=== PATIENT | female | born 1985 | race Hispanic/Latino ===

== ENCOUNTER 2018-02-03 12:49 | Emergency (ER) | payer OTHER ==
[~2018-02-03] VITALS: Ht 175.3 cm; Wt 108.9 kg
--- OUTSIDE RECORDS SUMMARY | 2018-02-03 12:51 | XMS REPORT | Summary of Care ---
Author Author [facility] Organization [facility] Address Unknown Phone Unavailable Encounter HQ Marti_maritza(FIN) [id number] Date(s): 06/28/17 - 06/28/17 [facility] [address], [address] [place] [address]- [phone] Discharge Disposition: Home or Self Care Attending Physician: Brianne Aviles MD Vital Signs Most recent to 1 oldest [Reference Range]: Height 175.26 cm (06/28/17 11:34 AM) Temperature Oral 97.7 DegF [96.4-99.1 DegF] (06/28/17 11:34 AM) Blood Pressure 118/82 mmHg [90-140/60-90 mmHg] (06/28/17 11:34 AM) Respiratory Rate 14 BRMIN [14-20 BRMIN] (06/28/17 11:34 AM) Peripheral Pulse 70 bpm Rate [60-100 bpm] (06/28/17 11:34 AM) Weight 111.136 kg (06/28/17 11:34 AM) Body Mass Index 36.18 m2 (06/28/17 11:34 AM) Problem List Condition Effective Dates Status Health Status Informant Anemia(Confirmed) Active Diarrhea(Confirmed) Active Fatigue(Confirmed) Active History of Active pancreatitis(Confirm ed) Hypertrophy Active tonsils(Confirmed) Dyspepsia(Confirmed) Active Menorrhagia(Confirme Active d) Obesity(Confirmed)1 06/05/14 Active Snoring(Confirmed) Active 1Data migrated from [facility] on 10/16/14. Allergies, Adverse Reactions, Alerts Substance Reaction Severity Status NKDA Active Medications No Known Medications Results No data available for this section Immunizations Given and Recorded Vaccine Date Status Refusal Reason diphtheria/pertussis, acel/tetanus adult 06/25/13 Given Procedures Procedure Date Related Diagnosis Body Site Status Colonoscopy 10/07/16 Completed Appendectomy 05/21/14 Completed section 06/22/13 Completed TL - Tubal ligation 06/22/13 Completed section 06/02/09 Completed section 03/09/07 Completed Cholecystectomy Completed Repair of tendon1 Completed 1right ankle Social History Social History Type Response Substance Abuse Use: None. Exercise Exercise duration: 0. Employment/School Status: Employed. 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 Alcohol Current, Type Beer, Wine, Liquor.1 Smoking Status Never smoker; Exposure to Tobacco Smoke None; Cigarette Smoking Last 365 Days No; Reg Smoking Cessation Counseling No entered on: 06/28/17 1socially Assessment and Plan No data available for this section
--- OUTSIDE RECORDS SUMMARY | 2018-02-03 12:51 | XMS REPORT | Continuity of Care Document ---
Author Author [facility] Interface Address Unknown Phone Unavailable Problems Problem Status Onset Date Classification Date Reported Comments Source BODY MASS INDEX 32.0-32.9, ADULT Active 06/05/2014 Condition 06/05/2014 [facility] Group OBESITY Active 06/05/2014 Condition 06/05/2014 [facility] Group PREVENTIVE HEALTH CARE Active 06/05/2014 Condition 06/05/2014 Medical Group Obesity<sup>1</sup> Active 06/05/2014 Problem 10/04/2017 Data migrated from [employer] on 10/16/14. Medical Group Active 10/04/2012 [facility] Anemia Active Problem 10/04/2017 [facility] Diarrhea Active Problem 10/04/2017 [facility] Fatigue Active Problem 10/04/2017 [facility] History of pancreatitis Active Problem 10/04/2017 [facility] Hypertrophy tonsils Active Problem 10/04/2017 [facility] Dyspepsia Active Problem 10/04/2017 [facility] Menorrhagia Active Problem 10/04/2017 [facility] Snoring Active Problem 10/04/2017 [facility] DELIV NOS-UNSP Active [facility] Medications Medication Details Route Status Patient Instructions Ordering Provider Order Date Source Multivitamins oral tablet 1 tab, Route: PO, Drug Form: TAB, Dosing Weight 109.091, kg, Daily, Start date: 06/23/13 9:00:00, Duration: 30 day, Stop date: 07/22/13 9:00:00 No Longer Active 06/23/2013 [facility] Hydrocortisone 25 MG/ML Rectal Cream [Anusol HC] 1 appl, Route: MD, BID, Drug form: CRM/A, Start date: 06/23/13 9:00:00, Duration: 30 day, Stop date: 07/22/13 17:00:00(Same as: Anusol-HC, Proctosol-HC) No Longer Active 06/23/2013 [facility] Tucks 1 appl, Route: TOP, TID, Drug form: PAD, PRN Hemorrhoids, Start date: 06/23/13 8:52:00, Duration: 30 day, Stop date: 07/23/13 8:51:00(Same as: Mina Allen PADS) No Longer Active 06/23/2013 [facility] ferrous sulfate 325 mg oral enteric coated tablet 325 mg=1 tab, PO, Daily, # 90 tab, 0 Refill(s) Active 06/23/2013 [facility] Cephalexin 500 MG Oral Capsule [Keflex] 500 mg=1 cap, PO, TID, # 21 cap, 0 Refill(s) Active 06/23/2013 [facility] Docusate Sodium 100 MG Oral Capsule [Colace] 100 mg=1 cap, PO, BID, Constipation, # 20 cap, 0 Refill(s) Active 06/23/2013 [facility] ibuprofen 600 mg oral tablet 600 mg=1 tab, PO, Q6H, Pain, take with food, # 30 tab, 0 Refill(s)take with food Active 06/23/2013 [facility] Acetaminophen 325 MG / Hydrocodone Bitartrate 5 MG Oral Tablet [Parshall 5/325] 1-2 tab, PO, Q4-6H, Pain, # 30 tab, 0 Refill(s) Active 06/23/2013 [facility] Benadryl 25 mg, 1 cap, Route: PO, Drug form: CAP, PRN, Dosing Weight 109.091, kg, PRN Other -See Comment, Start date: 06/22/13 21:35:00, Duration: 30 day, Stop date: 07/22/13 21:34:00, for itching(Same as: Benadryl) No Longer Active 06/23/2013 [facility] Saline Flush 0.9% 5 ml, Route: IVP, Drug Form: INJ, Dosing Weight 109.091, kg, Q12H, Start date: 06/22/13 21:00:00, Duration: 30 day, Stop date: 07/22/13 9:00:00Same as: BD Posiflush Sterile No Longer Active 06/23/2013 [facility] 10 ML Cefazolin 100 MG/ML Prefilled Syringe 2 gm, 50 mL, Route: IVPB, Drug form: INJ, ABXQ8H, Dosing Weight 109.091, kg, Start date: 06/22/13 17:00:00, Stop date: 06/23/13 9:19:00 No Longer Active 06/22/2013 [facility] Motrin 600 mg, 1 tab, Route: PO, Drug form: TAB, Q6H-02, Start date: 06/22/13 14:00:00, Duration: 24 hr, Stop date: 06/23/13 8:00:00(Same as: Motrin) "Do Not Crush" Take with food. Active 06/22/2013 [facility] ketorolac 30 mg/mL injectable solution 30 mg, 1 mL, Route: IVP, Drug form: INJ, Q6H-02, Start date: 06/22/13 14:00:00, Duration: 2 doses or times, Stop date: 06/22/13 20:00:00(Same as:Toradol) IV bolus must be given > 15 seconds. Give IM administration slowly and deeply into the muscle. Not for use > 4 days Inactive 06/22/2013 [facility] M-M-R II 0.5 mL, Route: SUB-Q, Drug Form: PDR/INJ, Dosing Weight 109.091, kg, ONCALL, Start date: 06/22/13 11:00:00, Duration: 1 doses or times(Same as: M-M-R II) (hjuwoyq-uguwd-ncqbkxi virus vaccine 0.5 ml INJ VL) GIVE PRIOR TO DISCHARGE No Longer Active 06/22/2013 [facility] zolpidem 5 mg, 1 tab, Route: PO, Drug form: TAB, Bedtime, Dosing Weight 109.091, kg, PRN Insomnia, Start date: 06/22/13 10:09:00, Duration: 30 day, Stop date: 07/22/13 10:08:00(Same As: Ambien) No Longer Active 06/22/2013 [facility] Acetaminophen 650 mg, 20.3 mL, Route: PO, Drug form: LIQ, Q4H, Dosing Weight 109.091, kg, PRN Other -See Comment, Start date: 06/22/13 10:09:00, Duration: 30 day, Stop date: 07/22/13 10:08:00Max fsuzxznnhzmem=8063 mg/day (4 gm/day). (Same as: Tylenol) No Longer Active 06/22/2013 [facility] Simethicone 160 mg, 2 tab, Route: PO, Drug form: CHEWTAB, Q8H, Dosing Weight 109.091, kg, PRN Gas, Start date: 06/22/13 10:09:00, Duration: 30 day, Stop date: 07/22/13 10:08:00(Same as: Mylicon) No Longer Active 06/22/2013 [facility] Saline Flush 0.9% 5 ml, Route: IVP, Drug Form: INJ, Dosing Weight 109.091, kg, PRN, PRN Line Flush, Start date: 06/22/13 10:09:00, Duration: 30 day, Stop date: 07/22/13 10:08:00Same as: BD Posiflush Sterile No Longer Active 06/22/2013 [facility] lanolin topical cream 1 appl, Route: TOP, PRN, Drug form: OINT, PRN Other -See Comment, Start date: 06/22/13 10:09:00, Duration: 30 day, Stop date: 07/22/13 10:08:00(Same as:Lanolin) No Longer Active 06/22/2013 [facility] Bisacodyl 15 mg, 3 tab, Route: PO, Drug form: ECTAB, Daily, Dosing Weight 109.091, kg, PRN Other -See Comment, Start date: 06/22/13 10:09:00, Duration: 30 day, Stop date: 07/22/13 10:08:00(Same As: Dulcolax, Julia ectol) (Do Not Crush) "Do Not Crush" No Longer Active 06/22/2013 [facility] Ibuprofen 800 mg, 1 tab, Route: PO, Drug form: TAB, Q8H, Dosing Weight 109.091, kg, PRN Pain Score 6-10, Start date: 06/22/13 10:09:00, Duration: 30 day, Stop date: 07/22/13 10:08:00(Same as: Motrin) "Do Not Crush" Take with food. No Longer Active 06/22/2013 [facility] Acetaminophen 325 MG / Hydrocodone Bitartrate 5 MG Oral Tablet 2 tab, Route: PO, Drug Form: TAB, Dosing Weight 109.091, kg, Q4H, PRN Pain Score 4-6, Start date: 06/22/13 10:09:00, Duration: 30 day, Stop date: 07/22/13 10:08:00(Same as: Parshall 325/5) Do not exceed 4gm/day of acetaminophen. No Longer Active 06/22/2013 [facility] Lactated Ringers IV 1,000 mL 1,000 mL, Rate: 100 ml/hr, Infuse over: 10 hr, Route: IV, Dosing Weight 109.091 kg, Total Volume: 1,000, Start date: 06/22/13 10:09:00, Duration: 30 day, Stop date: 07/22/13 10:08:00 No Longer Active 06/22/2013 [facility] Oxytocin 0.03 UNT/ML Injectable Solution 30 unit, 500 mL, Rate: 42 ml/hr, Infuse over: 11.9 hr, Dosing Weight 109.091, kg, Route: IV, Total Volume: 500 mL, Start date: 06/22/13 10:09:00, Duration: 1 doses or times, Stop date: 06/22/13 22:02:00, Replace Every: 11.9 hr Inactive 06/22/2013 [facility] Zofran 4 mg, 2 mL, Route: IVP, Drug form: INJ, PRN, PRN Nausea, Start date: 06/22/13 9:48:00, Duration: 24 hr, Stop date: 06/23/13 9:47:00(Same as: Zofran) No Longer Active 06/22/2013 [facility] naloxone 0.4 mg, 1 mL, Route: IVP, Drug form: INJ, PRN, PRN Narcotic Reversal, Start date: 06/22/13 9:48:00, Duration: 24 hr, Stop date: 06/23/13 9:47:00(Same as: Narcan) No Longer Active 06/22/2013 [facility] Azithromycin 500 mg, Route: IVPB, Drug form: PDR/INJ, ONCALL, Dosing Weight 109.091, kg, Start date: 06/22/13 6:00:00, Duration: 1 doses or times(Same As: Zithromax IV) Inactive 06/22/2013 [facility] Cefazolin 3 gm, 150 mL, Route: IVPB, Drug form: INJ, ONCALL, Dosing Weight 109.091, kg, Start date: 06/22/13 6:00:00, Duration: 1 doses or times Inactive 06/22/2013 [facility] Carboprost 250 microgram, 1 mL, Route: IM, Drug form: INJ, ONCALL, Dosing Weight 109.091, kg, Start date: 06/22/13 6:00:00, Duration: 30 day, Stop date: 07/22/13 5:59:00(Same As: Hemabate) No Longer Active 06/22/2013 [facility] Misoprostol 1,000 microgram, 5 tab, Route: MD, Drug form: TAB, ONCALL, Dosing Weight 109.091, kg, Start date: 06/22/13 6:00:00, Duration: 30 day, Stop date: 07/22/13 5:59:00(Same as:Cytotec) Take with food No Longer Active 06/22/2013 [facility] Methylergonovine 0.2 mg, 1 mL, Route: IM, Drug form: INJ, ONCALL, Dosing Weight 109.091, kg, Start date: 06/22/13 6:00:00, Duration: 30 day, Stop date: 07/22/13 5:59:00(Same as:Methergine) No Longer Active 06/22/2013 [facility] Morphine 2 mg, 1 mL, Route: IVP, Drug form: INJ, Q2H, Dosing Weight 109.091, kg, PRN Pain Score 7-10, Start date: 06/22/13 5:58:00, Duration: 30 day, Stop date: 07/22/13 5:57:00(Same as:MORPhine Sulfate) No Longer Active 06/22/2013 [facility] Ondansetron 4 mg, 2 mL, Route: IVP, Drug form: INJ, Q8H, Dosing Weight 109.091, kg, PRN Nausea & Vomiting, Start date: 06/22/13 5:58:00, Duration: 30 day, Stop date: 07/22/13 5:57:00(Same as: Zofran) No Longer Active 06/22/2013 [facility] Citric Acid / sodium citrate 30 mL, Route: PO, Drug Form: SOLN, Dosing Weight 109.091, kg, ONCE, Start date: 06/22/13 5:58:00, Duration: 1 doses or times, Stop date: 06/22/13 5:58:00(Same As: Bicitra, Cytra-2) Sodium citrate-citric acid (500-334 mg/5 mL): 1 mL contains sodium 1 mEq/mL and bicarbonate 1 mEq/mL No Longer Active 06/22/2013 [facility] Terbutaline 0.25 mg, 0.25 mL, Route: SUB-Q, Drug form: INJ, ONCALL, Dosing Weight 109.091, kg, PRN Other -See Comment, Start date: 06/22/13 5:58:00, Duration: 1 doses or times, Stop date: Limited # of timesDO NOT USE IN FUNERAL ASSISTANT AREA (Same As: Brethine) No Longer Active 06/22/2013 [facility] Oxytocin 0.03 UNT/ML Injectable Solution 30 unit, 500 mL, Rate: 42 ml/hr, Infuse over: 11.9 hr, Dosing Weight 109.091, kg, Route: IV, Total Volume: 500 mL, Start date: 06/22/13 5:58:00, Duration: 1 doses or times, Stop date: 06/22/13 17:51:00, Replace Every: 11.9 hr Inactive 06/22/2013 [facility] Calcium Chloride 0.0014 MEQ/ML / Potassium Chloride 0.004 MEQ/ML / Sodium Chloride 0.103 MEQ/ML / Sodium Lactate 0.028 MEQ/ML Injectable Solution 1,000 mL, Rate: 125 ml/hr, Infuse over: 8 hr, Route: IV, Dosing Weight 109.091 kg, Total Volume: 1,000, Start date: 06/22/13 5:58:00, Duration: 30 day, Stop date: 07/22/13 5:57:00 No Longer Active 06/22/2013 [facility] 1 Plus 1 oral tablet 1 tab, PO, Daily, # 30 tab, 0 Refill(s) Active 06/22/2013 [facility] Allergies, Adverse Reactions, Alerts Substance Category Reaction Severity Reaction type Status Date Reported Comments Source DOG Drug allergy DOG 06/05/2014 [facility] CATS Environmental allergy CATS 06/05/2014 [facility] ROCHES Environmental allergy ROCHES 06/05/2014 [facility] DUST MITES Environmental allergy DUST MITES 06/05/2014 [facility] Immunizations Immunization Date Given Site Status Last Updated Comments Source influenza immunization (Flu Vax) has been administered 01/09/2014 completed [facility] diphtheria/pertussis, acel/tetanus adult 06/25/2013 Right deltoid completed Hector [facility] Results Order Name Results Value Reference Range Date Interpretation Comments Source Welder/Fabricator PAP SMEAR done per patient normal 07/10/2013 [facility] HEMATOLOGY MPV 9.6 fL 7.4 - 10.4 06/24/2013 [facility] HEMATOLOGY Platelet 196 K/CMM 133 - 450 06/24/2013 [facility] HEMATOLOGY MCHC 33.0 g/dL 32.0 - 36.0 06/24/2013 [facility] HEMATOLOGY RDW 15.0 % 11.5 - 14.5 06/24/2013 [facility] HEMATOLOGY MCH 25.3 pg 27.0 - 31.0 06/24/2013 [facility] HEMATOLOGY Hgb 8.5 g/dL 12.0 - 16.0 06/24/2013 [facility] HEMATOLOGY Hct 25.9 % 36.0 - 48.0 06/24/2013 [facility] HEMATOLOGY MCV 76.6 fL 81.0 - 99.0 06/24/2013 [facility] HEMATOLOGY WBC X 10x3 9.1 K/CMM 3.7 - 10.4 06/24/2013 [facility] HEMATOLOGY RBC X 10x6 3.38 M/CMM 4.20 - 5.40 06/24/2013 [facility] HEMATOLOGY Microcyte 1+ *ABN* (06/24/2013 04:07:11 [facility]/[place]) None Seen 06/24/2013 [facility] HEMATOLOGY Lymphocytes # 1.7 K/CMM 1.0 - 5.5 06/24/2013 [facility] HEMATOLOGY Segs-Bands # 6.6 K/CMM 1.5 - 8.1 06/24/2013 [facility] HEMATOLOGY Basophils 0.2 % 0.0 - 1.0 06/24/2013 [facility] HEMATOLOGY Monocytes # 0.5 K/CMM 0.0 - 0.8 06/24/2013 [facility] HEMATOLOGY Eosinophils # 0.2 K/CMM 0.0 - 0.5 06/24/2013 [facility] HEMATOLOGY Segs 72.9 % 45.0 - 75.0 06/24/2013 [facility] HEMATOLOGY Lymphocytes 19.0 % 20.0 - 40.0 06/24/2013 [facility] HEMATOLOGY Eosinophils 2.4 % 0.0 - 4.0 06/24/2013 [facility] HEMATOLOGY Monocytes 5.5 % 2.0 - 12.0 06/24/2013 [facility] HEMATOLOGY Segs 79.5 % 45.0 - 75.0 06/23/2013 [facility] HEMATOLOGY Monocytes # 0.5 K/CMM 0.0 - 0.8 06/23/2013 [facility] HEMATOLOGY Lymphocytes # 1.3 K/CMM 1.0 - 5.5 06/23/2013 [facility] HEMATOLOGY Segs-Bands # 7.3 K/CMM 1.5 - 8.1 06/23/2013 [facility] HEMATOLOGY Microcyte 1+ *ABN* (06/23/2013 01:52:19 [facility]/[place]) None Seen 06/23/2013 [facility] HEMATOLOGY Eosinophils # 0.1 K/CMM 0.0 - 0.5 06/23/2013 [facility] HEMATOLOGY Monocytes 5.7 % 2.0 - 12.0 06/23/2013 [facility] HEMATOLOGY Lymphocytes 13.7 % 20.0 - 40.0 06/23/2013 [facility] HEMATOLOGY Basophils 0.1 % 0.0 - 1.0 06/23/2013 [facility] HEMATOLOGY Eosinophils 1.0 % 0.0 - 4.0 06/23/2013 [facility] HEMATOLOGY Platelet 165 K/CMM 133 - 450 06/23/2013 [facility] HEMATOLOGY MPV 10.2 fL 7.4 - 10.4 06/23/2013 [facility] HEMATOLOGY MCV 75.3 fL 81.0 - 99.0 06/23/2013 [facility] HEMATOLOGY MCH 24.7 pg 27.0 - 31.0 06/23/2013 [facility] HEMATOLOGY MCHC 32.8 g/dL 32.0 - 36.0 06/23/2013 [facility] HEMATOLOGY RDW 14.7 % 11.5 - 14.5 06/23/2013 [facility] HEMATOLOGY Hct 25.8 % 36.0 - 48.0 06/23/2013 [facility] HEMATOLOGY Hgb 8.5 g/dL 12.0 - 16.0 06/23/2013 [facility] HEMATOLOGY RBC X 10x6 3.42 M/CMM 4.20 - 5.40 06/23/2013 [facility] HEMATOLOGY WBC X 10x3 9.2 K/CMM 3.7 - 10.4 06/23/2013 [facility] BLOOD BANK RESULTS Antibody Scrn Negative (06/22/2013 06:15:00 [facility]) 06/22/2013 [facility] BLOOD BANK RESULTS ABO/Rh O POS 06/22/2013 [facility] HEMATOLOGY Platelet 217 K/CMM 133 - 450 06/22/2013 [facility] HEMATOLOGY MPV 10.6 fL 7.4 - 10.4 06/22/2013 [facility] HEMATOLOGY Hct 30.9 % 36.0 - 48.0 06/22/2013 [facility] HEMATOLOGY MCH 24.4 pg 27.0 - 31.0 06/22/2013 [facility] HEMATOLOGY MCV 75.5 fL 81.0 - 99.0 06/22/2013 [facility] HEMATOLOGY RDW 14.4 % 11.5 - 14.5 06/22/2013 [facility] HEMATOLOGY MCHC 32.3 g/dL 32.0 - 36.0 06/22/2013 [facility] HEMATOLOGY RBC X 10x6 4.09 M/CMM 4.20 - 5.40 06/22/2013 [facility] HEMATOLOGY WBC X 10x3 11.2 K/CMM 3.7 - 10.4 06/22/2013 [facility] HEMATOLOGY Hgb 10.0 g/dL 12.0 - 16.0 06/22/2013 [facility] HEMATOLOGY Microcyte 1+ *ABN* (06/22/2013 05:59:00 [facility]) None Seen 06/22/2013 [facility] HEMATOLOGY Lymphocytes # 1.4 K/CMM 1.0 - 5.5 06/22/2013 [facility] HEMATOLOGY Segs-Bands # 9.3 K/CMM 1.5 - 8.1 06/22/2013 [facility] HEMATOLOGY Eosinophils # 0.1 K/CMM 0.0 - 0.5 06/22/2013 [facility] HEMATOLOGY Monocytes # 0.4 K/CMM 0.0 - 0.8 06/22/2013 [facility] HEMATOLOGY Lymphocytes 12.8 % 20.0 - 40.0 06/22/2013 [facility] HEMATOLOGY Segs 82.4 % 45.0 - 75.0 06/22/2013 [facility] HEMATOLOGY Basophils 0.4 % 0.0 - 1.0 06/22/2013 [facility] HEMATOLOGY Eosinophils 0.6 % 0.0 - 4.0 06/22/2013 [facility] HEMATOLOGY Monocytes 3.8 % 2.0 - 12.0 06/22/2013 [facility] IMMUNOLOGY Treponemal Scr Non Reactive *NA* (06/22/2013 05:59:00 [facility]) Non Reactive 06/22/2013 [facility] IMMUNOLOGY HIV. Negative *NA* (06/22/2013 05:59:00 [facility]) Negative 06/22/2013 [facility] IMMUNOLOGY Hep Bs Ag Negative *NA* (06/22/2013 05:59:00 [facility]) Negative 06/22/2013 [facility] Vital Signs Vital Sign Value Date Comments Source Height 175.26 cm 06/28/2017 [facility] Weight 111.136 06/28/2017 [facility] BMI Calculated 36.18 06/28/2017 [facility] Respitory Rate 14 06/28/2017 [facility] Heart Rate 70 06/28/2017 [facility] Temperature Oral (F) 97.7 F 06/28/2017 [facility] Systolic (mm Hg) 118 06/28/2017 [facility] Diastolic (mm Hg) 82 06/28/2017 [facility] Height 68 06/05/2014 [facility] Respitory Rate 12 06/05/2014 [facility] Weight 210.25 06/05/2014 [facility] Temperature Oral (F) 97.7 F 06/05/2014 Medical [facility] Heart Rate 76 06/05/2014 [facility] Systolic (mm Hg) 101 06/05/2014 [facility] Diastolic (mm Hg) 65 06/05/2014 Medical [facility] Height 175.26 cm 06/22/2013 [facility] BMI Calculated 35.52 06/22/2013 [facility] Weight 109.091 06/22/2013 [facility] Height 175.26 cm 06/22/2013 [facility] Weight 109.091 06/22/2013 [facility] BMI Calculated 35.52 06/22/2013 [facility] Encounters Location Location Details Encounter Type Encounter Number Reason For Visit Attending Provider ADM Date DC Date Status Source [facility] Inpatient [id number] _[id number] Liya Lopez 06/22/2013 06/25/2013 [facility] Office Visit [id number] Brianne Martinez MD 06/05/2014 06/05/2014 [facility] Outpatient [id number] BRIANNE MARTINEZ 06/17/2016 Active [facility] Outpatient [id number] BRIANNE MARTINEZ 09/23/2016 [facility] Outpatient [id number] BRIANNE MARTINEZ 06/28/2017 Active [facility] Outpatient [id number] Brianne Martinez 06/28/2017 06/29/2017 [facility] Procedures Procedure Code Date Perfomer Comments Source Colonoscopy [id number] 10/07/2016 [facility] Appendectomy [id number] 05/21/2014 [facility] vaginal Pap smear results [id number] 07/10/2013 done per patient normal Medical [facility] section [id number] 06/22/2013 Medical [facility] TL - Tubal ligation [id number] 06/22/2013 [facility] section [id number] 06/02/2009 Medical [facility] section [id number] 03/09/2007 [facility] Cholecystectomy [id number] [facility] Repair of tendon<sup>1</sup> [id number] right ankle [facility]
--- OUTSIDE RECORDS SUMMARY | 2018-02-03 12:51 | XMS REPORT | Summary of Care ---
Author Organization Unknown Address Unknown Phone Unavailable Encounter Dates Location Diagnoses Discharge Providers Disposition 06/22/2013 [facility] Liya Lopez - [address] [facility] Liya Lopez 06/25/[address] Reason for Visit Vital Signs Most recent to 1 2 oldest [Reference Range]: Height 175.26 cm 175.26 cm (06/22/2013 06:20:00 Marie/Revelo) (06/22/2013 05:55:00 Marie/Revelo) Weight 109.091 kg 109.091 kg (06/22/2013 06:20:00 Marie/Revelo) (06/22/2013 05:55:00 Marie/Revelo) Body Mass Index 35.52 m2 35.52 m2 (06/22/2013 06:20:00 Marie/Revelo) (06/22/2013 05:55:00 Marie/Revelo) Problem List No data available for this section Allergies, Adverse Reactions, Alerts Status Substance Reaction Severity Active NKDA Medications Medication Instructions Start Date Stop Date Status acetaminophen 650 mg, 20.3 mL, Route: PO, Drug 06/22/2013 06/25/2013 Discontinued form: LIQ, Q4H, Dosing Weight 109.091, kg, PRN Other -See Comment, Start date: 06/22/13 10:09:00, Duration: 30 day, Stop date: 07/22/13 10:08:00 Max qfrdtxoqfjwwj=1084bt/day (4 gm/day). (Same as: Tylenol) acetaminophen-hydroc 2 tab, Route: PO, Drug Form: TAB, 06/22/2013 06/25/2013 Discontinued odone 325 mg-5 mg Dosing Weight 109.091, kg, Q4H, PRN oral tablet Pain Score 4-6, Start date: 06/22/13 10:09:00, Duration: 30 day, Stop date: 07/22/13 10:08:00 (Same as: Lando 325/5) Do not exceed 4gm/day of acetaminophen. acetaminophen-hydroc 1 tab, Route: PO, Drug Form: TAB, 06/22/2013 06/25/2013 Discontinued odone 325 mg-5 mg Dosing Weight 109.091, kg, Q4H, PRN oral tablet Pain Score 1-3, Start date: 06/22/13 10:09:00, Duration: 30 day, Stop date: 07/22/13 10:08:00 (Same as: Lando 325/5) Do not exceed 4gm/day of acetaminophen. Anusol-HC 2.5% 1 appl, Route: VT, BID, Drug form: 06/23/2013 06/25/2013 Discontinued rectal cream with CRM/A, Start date: 06/23/13 applicator 9:00:00, Duration: 30 day, Stop date: 07/22/13 17:00:00 (Same as: Anusol-HC, Proctosol-HC) azithromycin 500 mg, Route: IVPB, Drug form: 06/22/2013 06/22/2013 Completed PDR/INJ, ONCALL, Dosing Weight 109.091, kg, Start date: 06/22/13 6:00:00, Duration: 1 doses or times (Same As: Zithromax IV) Benadryl 25 mg, 1 cap, Route: PO, Drug form: 06/22/2013 06/25/2013 Discontinued CAP, PRN, Dosing Weight 109.091, kg, PRN Other -See Comment, Start date: 06/22/13 21:35:00, Duration: 30 day, Stop date: 07/22/13 21:34:00, for itching (Same as: Benadryl) bisacodyl 15 mg, 3 tab, Route: PO, Drug form: 06/22/2013 06/25/2013 Discontinued ECTAB, Daily, Dosing Weight 109.091, kg, PRN Other -See Comment, Start date: 06/22/13 10:09:00, Duration: 30 day, Stop date: 07/22/13 10:08:00 (Same As: Dulcolax, Correctol) (Do Not Crush) "Do Not Crush" bisacodyl 10 mg, 1 supp, Route: VT, Drug 06/22/2013 06/25/2013 Discontinued form: SUPP, PRN, Dosing Weight 109.091, kg, PRN Other -See Comment, Start date: 06/22/13 10:09:00, Duration: 30 day, Stop date: 07/22/13 10:08:00 (Same As: Dulcolax, Bisco-Lax) carboprost 250 microgram, 1 mL, Route: IM, 06/22/2013 06/23/2013 Discontinued Drug form: INJ, ONCALL, Dosing Weight 109.091, kg, Start date: 06/22/13 6:00:00, Duration: 30 day, Stop date: 07/22/13 5:59:00 (Same As: Hemabate) ceFAZolin 3 gm, 150 mL, Route: IVPB, Drug 06/22/2013 06/22/2013 Completed form: INJ, ONCALL, Dosing Weight 109.091, kg, Start date: 06/22/13 6:00:00, Duration: 1 doses or times ceFAZolin (SCIP) 2 gm, 50 mL, Route: IVPB, Drug 06/22/2013 06/23/2013 Completed form: INJ, ABXQ8H, Dosing Weight 109.091, kg, Start date: 06/22/13 17:00:00, Stop date: 06/23/13 9:19:00 citric acid-sodium 30 mL, Route: PO, Drug Form: SOLN, 06/22/2013 06/23/2013 Discontinued citrate Dosing Weight 109.091, kg, ONCE, Start date: 06/22/13 5:58:00, Duration: 1 doses or times, Stop date: 06/22/13 5:58:00 (Same As: Bicitra, Cytra-2) Sodium citrate-citric acid (500-334 mg/5 mL): 1 mL contains sodium 1 mEq/mL and bicarbonate 1 mEq/mL Colace 100 mg oral 100 mg=1 cap, PO, BID, 06/23/2013 Ordered capsule Constipation, # 20 cap, 0 Refill(s) ferrous sulfate 325 325 mg=1 tab, PO, Daily, # 90 tab, 06/23/2013 Ordered mg oral enteric 0 Refill(s) coated tablet ibuprofen 800 mg, 1 tab, Route: PO, Drug 06/22/2013 06/25/2013 Discontinued form: TAB, Q8H, Dosing Weight 109.091, kg, PRN Pain Score 6-10, Start date: 06/22/13 10:09:00, Duration: 30 day, Stop date: 07/22/13 10:08:00 (Same as: Motrin)"Do Not Crush" Take with food. ibuprofen 600 mg, 1 tab, Route: PO, Drug 06/22/2013 06/25/2013 Discontinued form: TAB, Q6H, Dosing Weight 109.091, kg, PRN Pain Score 1-5, Start date: 06/22/13 10:09:00, Duration: 30 day, Stop date: 07/22/13 10:08:00 (Same as: Motrin)"Do Not Crush" Take with food. ibuprofen 600 mg 600 mg=1 tab, PO, Q6H, Pain, take 06/23/2013 Ordered oral tablet with food, # 30 tab, 0 Refill(s) take with food Keflex 500 mg oral 500 mg=1 cap, PO, TID, # 21 cap, 0 06/23/2013 06/30/2013 Ordered capsule Refill(s) ketorolac 30 mg/mL 30 mg, 1 mL, Route: IVP, Drug form: 06/22/2013 06/22/2013 Completed injectable solution INJ, Q6H-02, Start date: 06/22/13 14:00:00, Duration: 2 doses or times, Stop date: 06/22/13 20:00:00 (Same as:Toradol) IV bolus must be given >15 seconds. Give IM administration slowly and deeply into the muscle. Not for use > 4 days Lactated Ringers 1,000 mL, Rate: 125 ml/hr, Infuse 06/22/2013 06/23/2013 Discontinued Injection IV 1,000 over: 8 hr, Route: IV, Dosing mL Weight 109.091 kg, Total Volume: 1,000, Start date: 06/22/13 5:58:00, Duration: 30 day, Stop date: 07/22/13 5:57:00 Lactated Ringers IV 1,000 mL, Rate: 100 ml/hr, Infuse 06/22/2013 06/25/2013 Discontinued 1,000 mL over: 10 hr, Route: IV, Dosing Weight 109.091 kg, Total Volume: 1,000, Start date: 06/22/13 10:09:00, Duration: 30 day, Stop date: 07/22/13 10:08:00 lanolin topical 1 appl, Route: TOP, PRN, Drug form: 06/22/2013 06/25/2013 Discontinued cream OINT, PRN Other -See Comment, Start date: 06/22/13 10:09:00, Duration: 30 day, Stop date: 07/22/13 10:08:00 (Same as:Lanolin) M-M-R II 0.5 mL, Route: SUB-Q, Drug Form: 06/22/2013 06/25/2013 Discontinued PDR/INJ, Dosing Weight 109.091, kg, ONCALL, Start date: 06/22/13 11:00:00, Duration: 1 doses or times (Same as: M-M-R II) (vdvyjhz-cntln-ndegihe virus vaccine 0.5 ml INJ VL) GIVE PRIOR TO DISCHARGE methylergonovine 0.2 mg, 1 mL, Route: IM, Drug form: 06/22/2013 06/23/2013 Discontinued INJ, ONCALL, Dosing Weight 109.091, kg, Start date: 06/22/13 6:00:00, Duration: 30 day, Stop date: 07/22/13 5:59:00 (Same as:Methergine) misoprostol 1,000 microgram, 5 tab, Route: VT, 06/22/2013 06/23/2013 Discontinued Drug form: TAB, ONCALL, Dosing Weight 109.091, kg, Start date: 06/22/13 6:00:00, Duration: 30 day, Stop date: 07/22/13 5:59:00 (Same as:Cytotec) Take with food morphine Sulfate 2 mg, 1 mL, Route: IVP, Drug form: 06/22/2013 06/23/2013 Discontinued INJ, Q2H, Dosing Weight 109.091, kg, PRN Pain Score 7-10, Start date: 06/22/13 5:58:00, Duration: 30 day, Stop date: 07/22/13 5:57:00 (Same as:MORPhine Sulfate) Motrin 600 mg, 1 tab, Route: PO, Drug 06/22/2013 06/23/2013 Pending form: TAB, Q6H-02, Start date: Complete 06/22/13 14:00:00, Duration: 24 hr, Stop date: 06/23/13 8:00:00 (Same as: Motrin)"Do Not Crush" Take with food. naloxone 0.4 mg, 1 mL, Route: IVP, Drug 06/22/2013 06/23/2013 Completed form: INJ, PRN, PRN Narcotic Reversal, Start date: 06/22/13 9:48:00, Duration: 24 hr, Stop date: 06/23/13 9:47:00 (Same as: Narcan) Lando 5/325 oral 1-2 tab, PO, Q4-6H, Pain, # 30 tab, 06/23/2013 06/28/2013 Ordered tablet 0 Refill(s) NS 500ml + Pitocin 30 unit, 500 mL, Rate: 42 ml/hr, 06/22/2013 06/22/2013 Completed 30 units (Titrate) Infuse over: 11.9 hr, Dosing Weight IV 30 unit 109.091, kg, Route: IV, Total Volume: 500 mL, Start date: 06/22/13 10:09:00, Duration: 1 doses or times, Stop date: 06/22/13 22:02:00, Replace Every: 11.9 hr NS 500ml + Pitocin 30 unit, 500 mL, Rate: 42 ml/hr, 06/22/2013 06/22/2013 Discontinued 30 units (Titrate) Infuse over: 11.9 hr, Dosing Weight IV 30 unit 109.091, kg, Route: IV, Total Volume: 500 mL, Start date: 06/22/13 5:58:00, Duration: 1 doses or times, Stop date: 06/22/13 17:51:00, Replace Every: 11.9 hr ondansetron 4 mg, 2 mL, Route: IVP, Drug form: 06/22/2013 06/23/2013 Discontinued INJ, Q8H, Dosing Weight 109.091, kg, PRN Nausea & Vomiting, Start date: 06/22/13 5:58:00, Duration: 30 day, Stop date: 07/22/13 5:57:00 (Same as: Zofran) 1 Plus 1 1 tab, PO, Daily, # 30 tab, 0 06/22/2013 Ordered oral tablet Refill(s) 1 tab, Route: PO, Drug Form: TAB, 06/23/2013 06/25/2013 Discontinued Multivitamins oral Dosing Weight 109.091, kg, Daily, tablet Start date: 06/23/13 9:00:00, Duration: 30 day, Stop date: 07/22/13 9:00:00 Saline Flush 0.9% 5 ml, Route: IVP, Drug Form: INJ, 06/22/2013 06/25/2013 Discontinued Dosing Weight 109.091, kg, PRN, PRN Line Flush, Start date: 06/22/13 10:09:00, Duration: 30 day, Stop date: 07/22/13 10:08:00 Same as: BD Posiflush Sterile Saline Flush 0.9% 5 ml, Route: IVP, Drug Form: INJ, 06/22/2013 06/25/2013 Discontinued Dosing Weight 109.091, kg, Q12H, Start date: 06/22/13 21:00:00, Duration: 30 day, Stop date: 07/22/13 9:00:00 Same as: BD Posiflush Sterile simethicone 160 mg, 2 tab, Route: PO, Drug 06/22/2013 06/25/2013 Discontinued form: CHEWTAB, Q8H, Dosing Weight 109.091, kg, PRN Gas, Start date: 06/22/13 10:09:00, Duration: 30 day, Stop date: 07/22/13 10:08:00 (Same as: Mylicon) terbutaline 0.25 mg, 0.25 mL, Route: SUB-Q, 06/22/2013 06/23/2013 Discontinued Drug form: INJ, ONCALL, Dosing Weight 109.091, kg, PRN Other -See Comment, Start date: 06/22/13 5:58:00, Duration: 1 doses or times, Stop date: Limited # of times DO NOT USE IN [employer] AREA(Same As: Milly) Mina 1 appl, Route: TOP, TID, Drug form: 06/23/2013 06/25/2013 Discontinued PAD, PRN Hemorrhoids, Start date: 06/23/13 8:52:00, Duration: 30 day, Stop date: 07/23/13 8:51:00 (Same as: Mina RAMOS) Zofran 4 mg, 2 mL, Route: IVP, Drug form: 06/22/2013 06/23/2013 Completed INJ, PRN, PRN Nausea, Start date: 06/22/13 9:48:00, Duration: 24 hr, Stop date: 06/23/13 9:47:00 (Same as: Zofran) zolpidem 5 mg, 1 tab, Route: PO, Drug form: 06/22/2013 06/25/2013 Discontinued TAB, Bedtime, Dosing Weight 109.091, kg, PRN Insomnia, Start date: 06/22/13 10:09:00, Duration: 30 day, Stop date: 07/22/13 10:08:00 (Same As: Ambien) Results BLOOD BANK RESULTS 1 2 3 Most recent to oldest [Reference Range]: O POS *Unknown* (06/22/2013 06:15:00 [facility]) ABO/Rh Negative (06/22/2013 06:15:00 [facility]) Antibody Scrn IMMUNOLOGY 1 2 3 Most recent to oldest [Reference Range]: Non Reactive *NA* (06/22/2013 05:59:00 [facility]) Treponemal Scr [Non Reactive] Negative *NA* (06/22/2013 05:59:00 [facility]) HIV. [Negative] Negative *NA* (06/22/2013 05:59:00 [facility]) Hep Bs Ag [Negative] HEMATOLOGY 1 2 3 Most recent to oldest [Reference Range]: 9.1 K/CMM (06/24/2013 04:07:11 [facility]) 9.2 K/CMM (06/23/2013 01:52:19 [facility]) 11.2 K/CMM *HI* (06/22/2013 05:59:00 [facility]) WBC [3.7-10.4 K/CMM] 3.38 M/CMM *LOW* (06/24/2013 04:07:11 [facility]) 3.42 M/CMM *LOW* (06/23/2013 01:52:19 [facility]) 4.09 M/CMM *LOW* (06/22/2013 05:59:00 [facility]) RBC [4.20-5.40 M/CMM] 8.5 g/dL *LOW* (06/24/2013 04:07:11 [facility]) 8.5 g/dL *LOW* (06/23/2013 01:52:19 [facility]) 10.0 g/dL *LOW* (06/22/2013 05:59:00 [facility]) Hgb [12.0-16.0 g/dL] 25.9 % *LOW* (06/24/2013 04:07:11 [facility]) 25.8 % *LOW* (06/23/2013 01:52:19 [facility]) 30.9 % *LOW* (06/22/2013 05:59:00 [facility]) Hct [36.0-48.0 %] 76.6 fL *LOW* (06/24/2013 04:07:11 [facility]) 75.3 fL *LOW* (06/23/2013 01:52:19 [facility]) 75.5 fL *LOW* (06/22/2013 05:59:00 [facility]) MCV [81.0-99.0 fL] 25.3 pg *LOW* (06/24/2013 04:07:11 [facility]) 24.7 pg *LOW* (06/23/2013 01:52:19 [facility]) 24.4 pg *LOW* (06/22/2013 05:59:00 [facility]) MCH [27.0-31.0 pg] 33.0 g/dL (06/24/2013 04:07:11 [facility]) 32.8 g/dL (06/23/2013 01:52:19 [facility]) 32.3 g/dL (06/22/2013 05:59:00 [facility]) MCHC [32.0-36.0 g/dL] 15.0 % *HI* (06/24/2013 04:07:11 [facility]) 14.7 % *HI* (06/23/2013 01:52:19 [facility]) 14.4 % (06/22/2013 05:59:00 [facility]) RDW [11.5-14.5 %] 196 K/CMM (06/24/2013 04:07:11 Marie/Revelo) 165 K/CMM (06/23/2013 01:52:19 [facility]/Revelo) 217 K/CMM (06/22/2013 05:59:00 Marie/Revelo) Platelet [133-450 K/CMM] 9.6 fL (06/24/2013 04:07:11 Marie/Revelo) 10.2 fL (06/23/2013 01:52:19 Marie/Revelo) 10.6 fL *HI* (06/22/2013 05:59:00 Marie/Revelo) MPV [7.4-10.4 fL] 72.9 % (06/24/2013 04:07:11 Marie/Revelo) 79.5 % *HI* (06/23/2013 01:52:19 Marie/Revelo) 82.4 % *HI* (06/22/2013 05:59:00 Marie/Revelo) Segs [45.0-75.0 %] 19.0 % *LOW* (06/24/2013 04:07:11 Marie/Revelo) 13.7 % *LOW* (06/23/2013 01:52:19 Marie/Revelo) 12.8 % *LOW* (06/22/2013 05:59:00 Marie/Revelo) Lymphocytes [20.0-40.0 %] 5.5 % (06/24/2013 04:07:11 Marie/Revelo) 5.7 % (06/23/2013 01:52:19 Marie/Revelo) 3.8 % (06/22/2013 05:59:00 Marie/Revelo) Monocytes [2.0-12.0 %] 2.4 % (06/24/2013 04:07:11 Marie/Revelo) 1.0 % (06/23/2013 01:52:19 Marie/Revelo) 0.6 % (06/22/2013 05:59:00 Marie/Revelo) Eosinophils [0.0-4.0 %] 0.2 % (06/24/2013 04:07:11 Marie/Revelo) 0.1 % (06/23/2013 01:52:19 Marie/Revelo) 0.4 % (06/22/2013 05:59:00 Marie/Revelo) Basophils [0.0-1.0 %] 6.6 K/CMM (06/24/2013 04:07:11 Marie/Revelo) 7.3 K/CMM (06/23/2013 01:52:19 Marie/Revelo) 9.3 K/CMM *HI* (06/22/2013 05:59:00 Marie/Revelo) Segs-Bands # [1.5-8.1 K/CMM] 1.7 K/CMM (06/24/2013 04:07:11 Marie/Revelo) 1.3 K/CMM (06/23/2013 01:52:19 Marie/Revelo) 1.4 K/CMM (06/22/2013 05:59:00 Marie/Revelo) Lymphocytes # [1.0-5.5 K/CMM] 0.5 K/CMM (06/24/2013 04:07:11 Marie/Revelo) 0.5 K/CMM (06/23/2013 01:52:19 Marie/Revelo) 0.4 K/CMM (06/22/2013 05:59:00 Marie/Revelo) Monocytes # [0.0-0.8 K/CMM] 0.2 K/CMM (06/24/2013 04:07:11 Marie/Revelo) 0.1 K/CMM (06/23/2013 01:52:19 Marie/Revelo) 0.1 K/CMM (06/22/2013 05:59:00 Marie/Revelo) Eosinophils # [0.0-0.5 K/CMM] 1+ *ABN* (06/24/2013 04:07:11 Marie/Revelo) 1+ *ABN* (06/23/2013 01:52:19 Marie/Revelo) 1+ *ABN* (06/22/2013 05:59:00 Marie/Revelo) Microcyte [None Seen] Medications Administered During Your Visit No data available for this section Immunizations Vaccine Date Refusal Reason diphtheria/pertussis, acel/tetanus adult 06/25/2013 Assessment and Plan Extracted from: Title: Clinical Document Author: Liya Lopez Date: 06/25/2013 Discharge Summary ADMISSION AND DISCHARGE DATES: 06/22/13 to 06/25/13 REASON FOR HOSPITALIZATION: repeat C/S at 37 2/7 weeks HOSPITAL COURSE: 27 yo G3 now P3 admitted at 37 weeks for repeat C/S. Patient underwent repeat C/S and BTL on 06/22/13. Patient had uneventful recovery course and was medically stable for discharge on PPD#3. PROCEDURES PERFORMED: repeat C/S and BTL on 06/22/13 ACTIVITY LIMITATIONS ON DISCHARGE: no heavy lifting or strenuous activity for 6 weeks PP. No driving while on norco. DISCHARGE MEDICATIONS: see med rec FOLLOW-UP: in 2 weeks for routine PP visit.
--- OUTSIDE RECORDS SUMMARY | 2018-02-03 12:51 | XMS REPORT | Continuity of Care Document ---
Author Author [facility] Organization [facility] Address Unknown Phone Unavailable Care Team Providers Care Hotel Controller Name Role Phone MD Traci, Brianne MEDRANO Unavailable Insurance Providers Payer name Policy type / Coverage type Policy ID Covered republican ID Policy Tobias [facility] Encounters Encounter Performer Location Date Office Visit Brianne Aviles MD [facility] Jun 05, 2014 Allergies, Adverse Reactions, Alerts Type Substance Reaction Status Drug allergy DOG Active Environmental allergy CATS Active Environmental allergy ROCHES Active Environmental allergy DUST MITES Active Problems Problem Effective Dates Problem Status BODY MASS INDEX 32.0-32.9, ADULT Jun 05, 2014 Active OBESITY Jun 05, 2014 Active PREVENTIVE HEALTH CARE Jun 05, 2014 Active Procedures Date Description Comments Jun 05, 2014 smoking status Never smoker Jul 10, 2013 vaginal Pap smear results done per patient normal Immunizations Vaccine Date Status influenza immunization (Flu Vax) has been administered Jan 09, 2014 completed Vital Signs Date Description Test Result Jun 05, 2014 height E&M - 8302-2 HEIGHT 68 in Jun 05, 2014 respiratory rate E&M - 9279-1 RESP RATE 12 /min Jun 05, 2014 weight E&M - 3141-9 WEIGHT 210.25 lb Jun 05, 2014 temperature E&M TEMPERATURE 97.7 deg f Jun 05, 2014 pulse rate E&M - 8867-4 PULSE RATE 76 /min Jun 05, 2014 blood pressure, systolic - 8480-6 BP SYSTOLIC 101 mm Hg Jun 05, 2014 blood pressure, diastolic - 8462-4 BP DIASTOLIC 65 mm Hg Results Date Description Test Name Value Reference Interpretation Status Jul 10, 2013 vaginal Pap smear results PAP SMEAR done per patient normal null
[2018-02-03] MEDS ORDERED: ONDANSETRON HCL 4 MG ORAL DISINTEGRATING TAB SL ONE (13:30)
[2018-02-03] MEDS ORDERED: DICYCLOMINE HCL 20 MG TAB PO ONE (14:00)
--- NOTE | 2018-02-03 15:42 | Diagnostic Imaging Report ---
EXAMINATION: Head CT HISTORY: Weakness unable to move arms for 1 hour 3 days ago. COMPARISON: None. TECHNIQUE: Multidetector axial images were obtained without contrast from the foramen magnum to the vertex . The images were reconstructed using brain and bone algorithms. Thin section brain images were reformatted into coronal and sagittal planes. Image quality: Motion/streaking artifact limits the evaluation of the skull base and posterior cranial fossa. Dose modulation, iterative reconstruction, and/or weight based adjustment of the mA/kV was utilized to reduce the radiation dose to as low as reasonably achievable. FINDINGS: Parenchyma: 1. No abnormal densities. 2. No mass or hemorrhage. No CT evidence of acute territorial vascular insult. Extra-axial spaces:No abnormal density. No extra-axial fluid collections Brain volume: Normal for age. Ventricles: No hydrocephalus or displacement. Arteries: No density suggestive of thrombus. Dural sinuses: No abnormal density. Extra-axial spaces: No abnormal density. Foramen magnum: No mass, Chiari malformation, or basilar invagination. Sella: No obvious mass. Paranasal/mastoid sinuses: Imaged portions unremarkable. Skull/Scalp: No lytic or blastic lesions. No fractures. IMPRESSION: Normal head CT. Signed by: Dr. Karlene Walter M.D. on 02/03/2018 3:39 PM
--- NOTE | 2018-02-03 16:09 | Diagnostic Imaging Report ---
Images made available for interpretation on 02/03/2018 at 4:00 PM EXAMINATION: CT of the cervical spine HISTORY: Transient paralysis 3 days ago COMPARISON: None available TECHNIQUE: Multidetector helical axial images were obtained without contrast from the foramen magnum to T1. The images were reconstructed using bone and soft tissue algorithms and were viewed in axial, sagittal and coronal planes. Dose modulation, iterative reconstruction, and/or weight based adjustment of the mA/kV was utilized to reduce the radiation dose to as low as reasonably achievable. FINDINGS: Alignment: Reversal of the cervical lordosis which may be related to multiple sclerosis but positional. Very minimal anterolisthesis at C4-C5. Soft tissues: Normal Vertebrae: Normal height and density. No acute fracture, infection or neoplasm Degenerative changes: None IMPRESSION: No acute cervical spine fractures or dislocations. Note: Acute postraumatic spinal cord, vascular or ligamentous injuries cannot adequately be assessed by CT. Signed by: Dr. Karlene Walter M.D. on 02/03/2018 4:06 PM
[2018-02-03] MEDS ORDERED: BENTYL10 MG/1 ML PO (17:26)
[2018-02-03] MEDS ORDERED: ROBAXIN-750750 MG PO (17:26)
[2018-02-03] MEDS ORDERED: ZOFRAN ODT4 MG SL (17:26)
== END 2018-02-03 17:15 | disposition home or self-care (01) ==
LOC: FSED 12:49
DX: R19.7 Diarrhea, unspecified (principal); R11.0 Nausea; R10.9 Unspecified abdominal pain; A08.0 Rotaviral enteritis; M54.42 Lumbago with sciatica, left side
CPT/HCPCS: 70450; 72125; 81003; 81025; 99284